=== PATIENT | male | born 1955 | race Hispanic/Latino ===

== ENCOUNTER 2022-03-05 22:52 | Inpatient (IN) | payer OTHER ==
[2022-03-05 23:55] LABS: ALT (SGPT) 20 U/L (8-55); AST (SGOT) 27 U/L (5-34); Albumin 3.7 g/dL (3.4-4.8); Alkaline Phosphatase 64 U/L (40-110); Anion Gap 12 mmol/L (10-20); BUN (Urea Nitrogen) 19 mg/dL (8.4-25.7); Bilirubin, Total 1.4 mg/dL (0.2-1.2); Calc. Creatinine Clearance 0 mL/min (70-130); Calcium 9.1 mg/dL (7.8-10.44); Carbon Dioxide 20 mmol/L (23-31); Chloride 110 mmol/L (98-107); Globulin 2.9 g/dL (2.4-3.5); Glucose 156 mg/dL (80-115); Potassium 3.3 mmol/L (3.5-5.1); Protein, Total 6.6 g/dL (5.8-8.1); Sodium 139 mmol/L (136-145)
[2022-03-06 00:01] LABS: #Eosinphils 0.1 10x3/uL (0.0-0.5); #Monocytes 0.4 10x3/uL (0.0-1.1); #Neutrophils 3.9 10x3/uL (1.5-8.4); %Basophils 0.6 % (0.0-2.0); %Eosinophils 1.5 % (0.0-6.0); %Lymphocytes 5.2 % (18.0-47.0); %Monocytes 8.2 % (0.0-10.0); %Neutrophils 84.3 % (40.0-75.0); Hemoglobin 10.8 g/dL (13.5-17.5); Mean Corpuscular Volume 88.3 fl (81.2-95.1); Mean Platelet Volume 10.7 fl (7.4-10.4); Platelet Count 119 10x3/uL (150-450); RBC Distribution Width 17.5 % (11.5-14.5); White Blood Cell (WBC) Count 4.7 10x3/uL (3.5-10.5)
[2022-03-06] MEDS ORDERED: Ibuprofen 200 MG TAB ONE (00:12)
[2022-03-06 00:34] LABS: SARS-CoV-2 NAA Rapid Test Not Detected (NotDetected)
[2022-03-06 01:02] LABS: Magnesium 1.7 mg/dL (1.6-2.6)
[2022-03-06 01:57] LABS: INR-International Normal Ratio 1.9; Prothrombin Time 18.9 sec (9.5-12.1)
[2022-03-06] MEDS ORDERED: Acetaminophen 325 MG TAB PO PRN (03:21)
[2022-03-06] MEDS ORDERED: Potassium Chloride 20 MEQ TAB ONE (03:57)
[2022-03-06] MEDS ORDERED: Furosemide 40 MG/4 ML VIAL ONE (03:57)
[2022-03-06 05:06] LABS: Troponin I 0.254 ng/mL (< 0.028)
[2022-03-06 05:42] VITALS: BMI 35.7
[2022-03-06] MEDS ORDERED: Potassium Chloride 20 MEQ TAB PO SCH (06:00)
[2022-03-06] MEDS ORDERED: Diltiazem 125 MG in Sodium Chloride 0.9% 100 ML IVPB SCH (06:00)
[2022-03-06] MEDS ORDERED: cefTRIAXone\\ROCEPHIN 1 GM in Sodium Chloride 0.9% 100 ML IVPB SCH ×2 (06:00→11:00)
[2022-03-06 06:47] LABS: CKMB 4.2 ng/mL (0-6.6)
[2022-03-06] MEDS ORDERED: Carvedilol 3.125 MG TAB PO SCH (07:30)
[2022-03-06] MEDS ORDERED: Spironolactone 25 MG TAB PO SCH (08:00)
[2022-03-06] MEDS: Albumin 25% 25 GM/100 ML BOT IVPB SCH (08:49)
[2022-03-06] MEDS: Azithromycin 500 MG in Sodium Chloride 0.9% 250 ML 250 ML IVPB SCH (08:49)
[2022-03-06] MEDS ORDERED: FLUoxetine HCl 20 MG CAP PO SCH ×2 (09:00→09:15)
[2022-03-06] MEDS ORDERED: Amiodarone 200 MG TAB PO SCH (09:00)
[2022-03-06] MEDS ORDERED: Furosemide 20 MG TAB PO SCH (09:00)
[2022-03-06] MEDS ORDERED: Sodium Chloride 0.9% 1,000 ML IV SCH (10:15)
[2022-03-06] MEDS ORDERED: Ondansetron PF 4 MG/2 ML Vial ONE (10:28)
[2022-03-06] MEDS ORDERED: Ondansetron PF 4 MG/2 ML Vial IVP SCH (10:30)
[2022-03-06 10:31] LABS: Anion Gap 13 mmol/L (10-20); BUN (Urea Nitrogen) 19 mg/dL (8.4-25.7); Calc. Creatinine Clearance 114 mL/min (70-130); Calcium 8.9 mg/dL (7.8-10.44); Carbon Dioxide 20 mmol/L (23-31); Chloride 110 mmol/L (98-107); Glucose 128 mg/dL (80-115); Magnesium 1.7 mg/dL (1.6-2.6); Potassium 4.3 mmol/L (3.5-5.1); Sodium 139 mmol/L (136-145)
[2022-03-06 10:40] LABS: Troponin I 2.093 ng/mL (< 0.028)
[2022-03-06] MEDS ORDERED: Norepinephrine 8 MG/0.9% NS 250 ML IVPB SCH (10:45)
[2022-03-06 11:17] LABS: Lactic Acid 3.1 mmol/L (0.5-2.2)
[2022-03-06 11:18] LABS: Prothrombin Time 20.8 sec (9.5-12.1)
[2022-03-06] MEDS ORDERED: Sodium Chloride 0.9% 100 ML ONE (11:42)
[2022-03-06] MEDS ORDERED: Magnesium 2 GM/50 ML(in water) 2 GM in Premix Bag 1 BAG IVPB SCH (11:45)
[2022-03-06] MEDS ORDERED: Aspirin 81 mg Enteric Coated Tablet PO SCH (12:45)
[2022-03-06 15:09] LABS: Bilirubin Neg (Negative); Blood, Urine 50 (Negative); Clarity Slightly Cloudy (Clear); Glucose, Urine (Dipstick) Normal (Negative); Ketone, Urine Negative (Negative); Leukocyte 25 (Negative); Nitrite Negative (Negative); Protein, Urine (Dipstick) 100 mg/dl (Neg-Trace)
[2022-03-06 15:29] LABS: Urine Culture Reflex No No
[2022-03-06 15:30] LABS: Bacteria/HPF 2+ HPF (None Seen); RBC/HPF 0-3 HPF (0-3); Renal Epithelial 0-3 HPF (None Seen); Squamous Epithelial 0-3 HPF (0-3)
[2022-03-06 15:33] LABS: Legionella Urinary Ag Negative (Negative); Strep pneumo Urine Ag NEGATIVE (NEGATIVE)
[2022-03-06 15:34] LABS: Actual Bicarbonate (HCO3v) 18 mEq/L (22-28); Base Excess -6.2 mEq/L (-2.0 to +3.0); Calcium, Ionized (venous) 1.11 mmol/L (1.16-1.32); Chloride (VBG) 111 mmol/L (98-106); Hemoglobin (Hb) 11.4 g/dL (12.6-17.4); Potassium (VBG) 4.24 mmol/L (3.70-5.30); Puncture Site Other Site; RapidComm Collect By LAB; Sodium 138.7 mmol/L (133-146); pH (venous) 7.37 (7.32-7.43)
[2022-03-06] MEDS ORDERED: Ondansetron PF 4 MG/2 ML Vial IVP PRN (16:00)
[2022-03-06 16:17] LABS: Troponin I 1.613 ng/mL (< 0.028)
[2022-03-06] MEDS ORDERED: Warfarin Sodium 5 MG TAB PO SCH (17:00)
[2022-03-06] MEDS: Atorvastatin Calcium 40 MG TAB PO SCH (20:47)
[2022-03-06] MEDS: Famotidine/PF 20 mg/2ml Vial SLOW IVP SCH (20:47)
[2022-03-06] MEDS ORDERED: Terazosin HCl 1 MG CAP PO SCH (21:00)
[2022-03-07 04:50] LABS: #Eosinphils 0.1 10x3/uL (0.0-0.5); #Monocytes 0.9 10x3/uL (0.0-1.1); #Neutrophils 5.5 10x3/uL (1.5-8.4); %Basophils 0.6 % (0.0-2.0); %Eosinophils 1.4 % (0.0-6.0); %Lymphocytes 9.4 % (18.0-47.0); %Monocytes 12.3 % (0.0-10.0); %Neutrophils 76.2 % (40.0-75.0); Hemoglobin 10.1 g/dL (13.5-17.5); Mean Corpuscular HGB CONC 33.3 g/dL (32.0-36.0); Mean Corpuscular Hemoglobin 29.6 pg (27.0-33.0); Mean Corpuscular Volume 88.9 fl (81.2-95.1); Mean Platelet Volume 10.2 fl (7.4-10.4); Platelet Count 120 10x3/uL (150-450); RBC Distribution Width 18.4 % (11.5-14.5); Red Blood Cell (RBC) Count 3.41 10x6/uL (4.32-5.72); White Blood Cell (WBC) Count 7.2 10x3/uL (3.5-10.5)
[2022-03-07 04:56] LABS: INR-International Normal Ratio 1.7; PTT 35.8 sec (22.0-33.0); Prothrombin Time 18.4 sec (9.5-12.1)
[2022-03-07 05:08] LABS: ALT (SGPT) 17 U/L (8-55); AST (SGOT) 20 U/L (5-34); Albumin 3.4 g/dL (3.4-4.8); Alkaline Phosphatase 50 U/L (40-110); Anion Gap 14 mmol/L (10-20); BUN (Urea Nitrogen) 24 mg/dL (8.4-25.7); Bilirubin, Direct 0.6 mg/dL (0.1-0.3); Bilirubin, Total 1.2 mg/dL (0.2-1.2); Calc. Creatinine Clearance 113 mL/min (70-130); Calcium 8.6 mg/dL (7.8-10.44); Carbon Dioxide 18 mmol/L (23-31); Cardiac Risk 2.5 (Less than 4.5); Chloride 110 mmol/L (98-107); Cholesterol 101 mg/dl (< 200 Desired); Glucose 130 mg/dL (80-115); HDL Cholesterol 40 mg/dL (>60 Neg Risk); LDL Cholesterol, Calculated 47 mg/dL; Potassium 3.7 mmol/L (3.5-5.1); Sodium 138 mmol/L (136-145); Triglycerides 68 mg/dL (Less than 150)
[2022-03-07] MEDS: cefTRIAXone\\ROCEPHIN 2 GM in Sodium Chloride 0.9% 100 ML IVPB SCH (06:02)
[2022-03-07] MEDS: Aspirin 81 mg Enteric Coated Tablet PO SCH (08:34)
[2022-03-07] MEDS: Famotidine/PF 20 mg/2ml Vial SLOW IVP SCH ×2 (08:34→20:46)
[2022-03-07] MEDS: FLUoxetine HCl 20 MG CAP PO SCH (08:35)
[2022-03-07] MEDS ORDERED: Azithromycin 500 MG VIAL ONE (08:45)
[2022-03-07] MEDS ORDERED: Sodium Chloride 0.9% 250 ML 250 ML ONE (08:45)
[2022-03-07] MEDS: Azithromycin 500 MG in Sodium Chloride 0.9% 250 ML 250 ML IVPB SCH (08:46)
[2022-03-07] MEDS ORDERED: Amiodarone 200 MG TAB PO SCH (11:30)
[2022-03-07] MEDS ORDERED: Spironolactone 25 MG TAB PO SCH (11:30)
[2022-03-07] MEDS ORDERED: Metoprolol Tartrate 25 MG TAB PO SCH (11:45)
[2022-03-07] MEDS: Albumin 25% 25 GM/100 ML BOT IVPB SCH (11:57)
[2022-03-07] MEDS: Furosemide 20 MG TAB PO SCH (14:05)
[2022-03-07 16:14] VITALS: TEMP 97.9
[2022-03-07] MEDS ORDERED: Warfarin Sodium 5 MG TAB PO SCH ×2 (17:00)
[2022-03-07] MEDS: Metoprolol Tartrate 25 MG TAB PO SCH (20:46)
[2022-03-07] MEDS: Atorvastatin Calcium 40 MG TAB PO SCH (20:46)
[2022-03-08 04:14] LABS: #Basophils 0.1 10x3/uL (0.0-0.2); #Eosinphils 0.3 10x3/uL (0.0-0.5); #Monocytes 1.1 10x3/uL (0.0-1.1); #Neutrophils 5.3 10x3/uL (1.5-8.4); %Basophils 0.7 % (0.0-2.0); %Lymphocytes 12.4 % (18.0-47.0); %Monocytes 13.7 % (0.0-10.0); %Neutrophils 68.8 % (40.0-75.0); Hemoglobin 10.6 g/dL (13.5-17.5); Mean Corpuscular HGB CONC 34.8 g/dL (32.0-36.0); Mean Corpuscular Hemoglobin 30.3 pg (27.0-33.0); Mean Corpuscular Volume 87.1 fl (81.2-95.1); Mean Platelet Volume 9.9 fl (7.4-10.4); Platelet Count 151 10x3/uL (150-450); RBC Distribution Width 18.1 % (11.5-14.5); White Blood Cell (WBC) Count 7.7 10x3/uL (3.5-10.5)
[2022-03-08 04:24] LABS: INR-International Normal Ratio 1.3; Prothrombin Time 14.2 sec (9.5-12.1)
[2022-03-08 04:28] LABS: Anion Gap 14 mmol/L (10-20); BUN (Urea Nitrogen) 23 mg/dL (8.4-25.7); Calc. Creatinine Clearance 132 mL/min (70-130); Calcium 8.7 mg/dL (7.8-10.44); Carbon Dioxide 20 mmol/L (23-31); Chloride 106 mmol/L (98-107); Glucose 104 mg/dL (80-115); Magnesium 1.8 mg/dL (1.6-2.6); Potassium 3.9 mmol/L (3.5-5.1); Sodium 136 mmol/L (136-145)
[2022-03-08] MEDS: cefTRIAXone\\ROCEPHIN 2 GM in Sodium Chloride 0.9% 100 ML IVPB SCH (06:14)
[2022-03-08 07:30] VITALS: BP 124/57
[2022-03-08] MEDS: FLUoxetine HCl 20 MG CAP PO SCH (08:00)
[2022-03-08] MEDS: Famotidine/PF 20 mg/2ml Vial SLOW IVP SCH (08:01)
[2022-03-08] MEDS: Metoprolol Tartrate 25 MG TAB PO SCH (08:01)
[2022-03-08] MEDS: Aspirin 81 mg Enteric Coated Tablet PO SCH (08:02)
[2022-03-08] MEDS: Furosemide 20 MG TAB PO SCH ×2 (08:03→14:23)
[2022-03-08] MEDS: Azithromycin 500 MG in Sodium Chloride 0.9% 250 ML 250 ML IVPB SCH (08:35)
[2022-03-08] MEDS ORDERED: Spironolactone 25 MG TAB PO SCH (09:00)
[2022-03-08] MEDS ORDERED: Amiodarone 200 MG TAB PO SCH (09:00)
[2022-03-08] MEDS ORDERED: Metoprolol Tartrate 25 MG TAB PO SCH (15:30)
[2022-03-08] MEDS ORDERED: Warfarin Sodium 7.5 MG TAB PO SCH (17:00)
[2022-03-08] MEDS ORDERED: Warfarin Sodium 2.5 MG TAB PO SCH (17:00)
[2022-03-08] MEDS ORDERED: Warfarin Sodium 10 MG TAB PO SCH (17:00)
[2022-03-08] MEDS ORDERED: Cefuroxime Axetil 250 MG TAB PO SCH (21:00)
[2022-03-09] MEDS ORDERED: Warfarin Sodium 5 MG TAB PO SCH (17:00)
== END 2022-03-08 15:38 | DRG 280 ==
LOC: EEVIPCON 22:52 → CSHERS 22:52 → CSHTELE 03-06 04:45 → CSHIMCU 03-06 11:04
PROVIDERS: ADMIT Family Medicine; ATTEND Hospitalist
PROC: 3E033XZ Introduction of Vasopressor into Peripheral Vein, Percutaneous Approach (ICD-10-PCS; principal; 2022-03-06)
DX: I11.0 Hypertensive heart disease with heart failure (principal); J18.9 Pneumonia, unspecified organism; I21.A1 Myocardial infarction type 2; J96.01 Acute respiratory failure with hypoxia; I50.43 Acute on chronic combined systolic (congestive) and diastolic (congestive) heart failure; J81.1 Chronic pulmonary edema; I48.21 Permanent atrial fibrillation; I95.9 Hypotension, unspecified; I34.0 Nonrheumatic mitral (valve) insufficiency; I25.10 Atherosclerotic heart disease of native coronary artery without angina pectoris; E87.6 Hypokalemia; R73.9 Hyperglycemia, unspecified; D69.6 Thrombocytopenia, unspecified; F41.9 Anxiety disorder, unspecified; I42.9 Cardiomyopathy, unspecified; E66.9 Obesity, unspecified; Z68.35 Body mass index [BMI] 35.0-35.9, adult; D64.9 Anemia, unspecified; M19.90 Unspecified osteoarthritis, unspecified site; Z96.1 Presence of intraocular lens; Z20.822 Contact with and (suspected) exposure to COVID-19; Z79.899 Other long term (current) drug therapy; Z79.82 Long term (current) use of aspirin; Z79.01 Long term (current) use of anticoagulants; Z86.73 Personal history of transient ischemic attack (TIA), and cerebral infarction without residual deficits; Z98.42 Cataract extraction status, left eye; Z98.41 Cataract extraction status, right eye; Z90.49 Acquired absence of other specified parts of digestive tract; Z98.890 Other specified postprocedural states; Z72.89 Other problems related to lifestyle; Z81.1 Family history of alcohol abuse and dependence
CPT/HCPCS: 36415; 36416; 71045; 80048; 80053; 80061; 80076; 81001; 82553; 82805; 83036; 83605; 83735; 83880; 84145; 84443; 84484; 85025; 85610; 85730; 86850; 86900; 86901; 87040; 87081; 87086; 87449; 87899; 93005; 93010; 93306; 94760; J0456; J0696; J1940; J2405; J3475; J3490; J7050; P9047; S0028; U0002

== ENCOUNTER 2022-04-01 12:33 | Emergency (ER) | payer OTHER ==
[~2022-04-01 12:33] MED LIST: Iopamidol 300 61% 100 ML VIAL FS ONE
[2022-04-01] MEDS ORDERED: Ketorolac Tromethamine 30 MG/ML VIAL ONE (13:15)
[2022-04-01] MEDS ORDERED: Morphine 4 MG/ML VIAL ONE (13:15)
[2022-04-01] MEDS ORDERED: Morphine 2 MG/ML VIAL ONE (13:16)
[2022-04-01 14:09] LABS: #Basophils 0.1 10x3/uL (0.0-0.2); #Eosinphils 0.5 10x3/uL (0.0-0.5); #Monocytes 0.3 10x3/uL (0.0-1.1); #Neutrophils 2.6 10x3/uL (1.5-8.4); %Basophils 1.2 % (0.0-2.0); %Eosinophils 12.1 % (0.0-6.0); %Lymphocytes 19.3 % (18.0-47.0); %Monocytes 7.7 % (0.0-10.0); %Neutrophils 59.5 % (40.0-75.0); Hemoglobin 10.5 g/dL (13.5-17.5); Mean Corpuscular HGB CONC 33.2 g/dL (32.0-36.0); Mean Corpuscular Hemoglobin 29.6 pg (27.0-33.0); Mean Platelet Volume 9.4 fl (7.4-10.4); Platelet Count 193 10x3/uL (150-450); RBC Distribution Width 16.6 % (11.5-14.5); Red Blood Cell (RBC) Count 3.55 10x6/uL (4.32-5.72); White Blood Cell (WBC) Count 4.3 10x3/uL (3.5-10.5)
[2022-04-01 14:18] LABS: ALT (SGPT) 7 U/L (8-55); AST (SGOT) 13 U/L (5-34); Albumin 3.7 g/dL (3.4-4.8); Alkaline Phosphatase 77 U/L (40-110); Anion Gap 12 mmol/L (10-20); BUN (Urea Nitrogen) 14 mg/dL (8.4-25.7); Bilirubin, Total 1.5 mg/dL (0.2-1.2); Calc. Creatinine Clearance 0 mL/min (70-130); Calcium 9.5 mg/dL (7.8-10.44); Carbon Dioxide 24 mmol/L (23-31); Chloride 104 mmol/L (98-107); Globulin 3.7 g/dL (2.4-3.5); Glucose 101 mg/dL (80-115); Potassium 3.8 mmol/L (3.5-5.1); Protein, Total 7.4 g/dL (5.8-8.1); Sodium 136 mmol/L (136-145)
[2022-04-01 15:29] LABS: SARS-CoV-2 NAA Rapid Test Not Detected (NotDetected)
[2022-04-01] MEDS ORDERED: Piperacillin/Tazobactam 3.375 GM VIAL ONE (15:45)
== END 2022-04-01 21:16 | disposition short-term general hospital (02) ==
LOC: CSHERS 12:33
DX: K40.30 Unilateral inguinal hernia, with obstruction, without gangrene, not specified as recurrent (principal); I11.0 Hypertensive heart disease with heart failure; I50.9 Heart failure, unspecified; I48.91 Unspecified atrial fibrillation; Z20.822 Contact with and (suspected) exposure to COVID-19; Z79.01 Long term (current) use of anticoagulants; Z86.73 Personal history of transient ischemic attack (TIA), and cerebral infarction without residual deficits
CPT/HCPCS: 36415; 74177; 80053; 85025; 87040; 96365; 96375; J1885; J2270; J2543; Q9967; U0002

== ENCOUNTER 2022-05-01 09:27 | Inpatient (IN) | payer OTHER ==
[2022-05-01 10:12] LABS: #Eosinphils 0.3 10x3/uL (0.0-0.5); #Monocytes 0.9 10x3/uL (0.0-1.1); #Neutrophils 5.4 10x3/uL (1.5-8.4); %Basophils 0.4 % (0.0-2.0); %Eosinophils 4.6 % (0.0-6.0); %Neutrophils 73.7 % (40.0-75.0); Hemoglobin 9.7 g/dL (13.5-17.5); Mean Corpuscular HGB CONC 32.4 g/dL (32.0-36.0); Mean Corpuscular Volume 89.5 fl (81.2-95.1); Mean Platelet Volume 10.2 fl (7.4-10.4); Platelet Count 192 10x3/uL (150-450); RBC Distribution Width 16.4 % (11.5-14.5); Red Blood Cell (RBC) Count 3.34 10x6/uL (4.32-5.72); White Blood Cell (WBC) Count 7.4 10x3/uL (3.5-10.5)
[2022-05-01 10:25] LABS: INR-International Normal Ratio 2.2; PTT 38.3 sec (22.0-33.0); Prothrombin Time 22.7 sec (9.5-12.1)
[2022-05-01 10:30] LABS: ALT (SGPT) 6 U/L (8-55); AST (SGOT) 17 U/L (5-34); Albumin 3.2 g/dL (3.4-4.8); Alkaline Phosphatase 70 U/L (40-110); Anion Gap 15 mmol/L (10-20); BUN (Urea Nitrogen) 10 mg/dL (8.4-25.7); Bilirubin, Total 1.7 mg/dL (0.2-1.2); CK (CPK) 50 U/L (30-200); Calc. Creatinine Clearance 0 mL/min (70-130); Calcium 8.7 mg/dL (7.8-10.44); Carbon Dioxide 20 mmol/L (23-31); Chloride 103 mmol/L (98-107); Estimated GFR 98; Globulin 4.2 g/dL (2.4-3.5); Glucose 110 mg/dL (80-115); Magnesium 1.5 mg/dL (1.6-2.6); Potassium 3.9 mmol/L (3.5-5.1); Protein, Total 7.4 g/dL (5.8-8.1); Sodium 134 mmol/L (136-145)
[2022-05-01 10:51] LABS: CKMB 0.8 ng/mL (0-6.6)
[2022-05-01 11:44] LABS: SARS-CoV-2 NAA Rapid Test Not Detected (NotDetected)
[2022-05-01] MEDS ORDERED: Iopamidol 300 61% 100 ML VIAL FS ONE (12:14)
[2022-05-01] MEDS ORDERED: Diltiazem 125 MG/25 ML ONE (14:58)
[2022-05-01] MEDS ORDERED: Magnesium 2 GM/50 ML BAG (IN WATER) ONE (16:30)
[2022-05-01] MEDS ORDERED: Amiodarone 150 MG/3 ML VIAL ONE (19:04)
[2022-05-01] MEDS ORDERED: Acetaminophen 500 MG TAB ONE (19:05)
[2022-05-01] MEDS ORDERED: Cefepime 2 GM VIAL ONE (19:05)
[2022-05-01 20:16] LABS: Troponin I 0.056 ng/mL (< 0.028)
[2022-05-01 20:35] LABS: Bilirubin 1+ (Negative); Blood, Urine 25 (Negative); Clarity Clear (Clear); Glucose, Urine (Dipstick) Normal (Negative); Ketone, Urine Negative (Negative); Leukocyte Negative (Negative); Nitrite Negative (Negative); Protein, Urine (Dipstick) 15 mg/dl (Neg-Trace); Specific Gravity, Urine 1.015 (1.002-1.036); Urobilinogen 12 mg/dL (Less than 2)
[2022-05-01] MEDS ORDERED: Senokot S 8.6-50 MG TAB PO PRN (20:47)
[2022-05-01] MEDS ORDERED: Ondansetron PF 4 MG/2 ML Vial IVP PRN (20:47)
[2022-05-01] MEDS ORDERED: Calcium Carbonate 500 MG ChewTAB PO PRN (20:47)
[2022-05-01] MEDS ORDERED: Guaifenesin DM 100-10/5 ML UDCUP PO PRN (20:47)
[2022-05-01 20:51] LABS: Bacteria/HPF Rare-Few HPF (None Seen); Mucous/LPF Rare LPF (<2+); RBC/HPF 0-3 HPF (0-3); Squamous Epithelial 0-3 HPF (0-3)
[2022-05-01] MEDS ORDERED: Digoxin 0.5 MG/2 ML AMP ONE (21:26)
[2022-05-01] MEDS: Diltiazem 125 MG, Admixture Fee 1 EACH in Sodium Chloride 0.9% 100 ML IVPB SCH (22:55)
[2022-05-01] MEDS ORDERED: Furosemide 20 MG TAB PO SCH (23:00)
[2022-05-01] MEDS ORDERED: Atorvastatin Calcium 40 MG TAB PO SCH (23:00)
[2022-05-01 23:12] LABS: Troponin I 0.056 ng/mL (< 0.028)
[2022-05-01] MEDS ORDERED: Piperacillin/Tazobactam 3.375 GM in Sodium Chloride 0.9% 100 ML IVPB SCH (23:15)
[2022-05-01] MEDS ORDERED: Piperacillin/Tazobactam 4.5 GM in Sodium Chloride 0.9% 100 ML IVPB SCH (23:59)
[2022-05-02 00:23] LABS: Legionella Urinary Ag Negative (Negative)
[2022-05-02 00:24] LABS: Strep pneumo Urine Ag NEGATIVE (NEGATIVE)
[2022-05-02] MEDS ORDERED: Vancomycin HCl 1 GM in Sodium Chloride 0.9% 250 ML 250 ML IVPB SCH (00:30)
[2022-05-02] MEDS: HYDROcodone/Acetaminophen 5/325 mg Tablet PO PRN ×3 (00:54→21:10)
[2022-05-02] MEDS ORDERED: Digoxin 0.5 MG/2 ML AMP SLOW IVP SCH ×2 (02:00→09:00)
[2022-05-02] MEDS: Piperacillin/Tazobactam 3.375 GM in Sodium Chloride 0.9% 100 ML IVPB SCH ×3 (03:02→20:53)
[2022-05-02 04:42] LABS: INR-International Normal Ratio 1.7; PTT 39.4 sec (22.0-33.0); Prothrombin Time 17.6 sec (9.5-12.1)
[2022-05-02 04:45] LABS: #Eosinphils 0.4 10x3/uL (0.0-0.5); #Neutrophils 7.2 10x3/uL (1.5-8.4); %Basophils 0.4 % (0.0-2.0); %Eosinophils 3.9 % (0.0-6.0); %Lymphocytes 5.7 % (18.0-47.0); %Neutrophils 78.6 % (40.0-75.0); Hemoglobin 9.8 g/dL (13.5-17.5); Mean Corpuscular HGB CONC 32.8 g/dL (32.0-36.0); Mean Corpuscular Hemoglobin 29.2 pg (27.0-33.0); Mean Platelet Volume 10.3 fl (7.4-10.4); Platelet Count 193 10x3/uL (150-450); RBC Distribution Width 16.5 % (11.5-14.5); Red Blood Cell (RBC) Count 3.36 10x6/uL (4.32-5.72); White Blood Cell (WBC) Count 9.2 10x3/uL (3.5-10.5)
[2022-05-02 04:46] LABS: ALT (SGPT) Less than 6 U/L (8-55); AST (SGOT) 9 U/L (5-34); Alkaline Phosphatase 72 U/L (40-110); Anion Gap 14 mmol/L (10-20); BUN (Urea Nitrogen) 9 mg/dL (8.4-25.7); Bilirubin, Total 2.1 mg/dL (0.2-1.2); Calc. Creatinine Clearance 123 mL/min (70-130); Calcium 7.8 mg/dL (7.8-10.44); Carbon Dioxide 20 mmol/L (23-31); Chloride 105 mmol/L (98-107); Estimated GFR 100; Globulin 3.3 g/dL (2.4-3.5); Glucose 105 mg/dL (80-115); Potassium 3.3 mmol/L (3.5-5.1); Protein, Total 6.3 g/dL (5.8-8.1); Sodium 136 mmol/L (136-145)
[2022-05-02 05:05] LABS: CKMB 0.5 ng/mL (0-6.6)
[2022-05-02] MEDS ORDERED: Potassium Chloride 20 MEQ TAB PO SCH (08:00)
[2022-05-02] MEDS: Furosemide 20 MG TAB PO SCH ×2 (08:40→20:53)
[2022-05-02] MEDS: FLUoxetine HCl 20 MG CAP PO SCH (08:40)
[2022-05-02] MEDS: Amiodarone 200 MG TAB PO SCH (08:40)
[2022-05-02] MEDS: Aspirin 81 mg Enteric Coated Tablet PO SCH (08:41)
[2022-05-02] MEDS ORDERED: Morphine 2 MG/ML VIAL SLOW IVP PRN (08:59)
[2022-05-02] MEDS: Spironolactone 25 MG TAB PO SCH (08:59)
[2022-05-02] MEDS: Terazosin HCl 1 MG CAP PO SCH (09:00)
[2022-05-02] MEDS: VANCOMYCIN 1.25 GM/250 ML BAG 1.25 GM in Premix Bag 1 BAG IVPB SCH (13:59)
[2022-05-02] MEDS ORDERED: Lidocaine 1% w/Epinephrine 1:200K 30 ML VIAL FS PRN (15:46)
[2022-05-02] MEDS: Diltiazem 125 MG, Admixture Fee 1 EACH in Sodium Chloride 0.9% 100 ML IVPB SCH (17:13)
[2022-05-02] MEDS: Atorvastatin Calcium 40 MG TAB PO SCH (20:53)
[2022-05-03] MEDS: VANCOMYCIN 1.25 GM/250 ML BAG 1.25 GM in Premix Bag 1 BAG IVPB SCH ×2 (00:15→13:51)
[2022-05-03 03:14] LABS: #Basophils 0.1 10x3/uL (0.0-0.2); #Eosinphils 0.9 10x3/uL (0.0-0.5); #Monocytes 1.1 10x3/uL (0.0-1.1); #Neutrophils 6.7 10x3/uL (1.5-8.4); %Basophils 0.5 % (0.0-2.0); %Eosinophils 9.3 % (0.0-6.0); %Lymphocytes 7.8 % (18.0-47.0); %Monocytes 11.1 % (0.0-10.0); %Neutrophils 70.9 % (40.0-75.0); Hemoglobin 8.9 g/dL (13.5-17.5); Mean Corpuscular Hemoglobin 29.2 pg (27.0-33.0); Mean Corpuscular Volume 91.1 fl (81.2-95.1); Mean Platelet Volume 9.5 fl (7.4-10.4); Platelet Count 175 10x3/uL (150-450); RBC Distribution Width 16.3 % (11.5-14.5); Red Blood Cell (RBC) Count 3.05 10x6/uL (4.32-5.72); White Blood Cell (WBC) Count 9.5 10x3/uL (3.5-10.5)
[2022-05-03 03:21] LABS: INR-International Normal Ratio 2.1; Prothrombin Time 21.6 sec (9.5-12.1)
[2022-05-03 03:45] LABS: Anion Gap 13 mmol/L (10-20); BUN (Urea Nitrogen) 11 mg/dL (8.4-25.7); CRP (Inflammatory) 12.34 mg/dL (= or < 0.5); Calc. Creatinine Clearance 125 mL/min (70-130); Calcium 7.9 mg/dL (7.8-10.44); Carbon Dioxide 19 mmol/L (23-31); Chloride 103 mmol/L (98-107); Estimated GFR 100; Glucose 110 mg/dL (80-115); Potassium 3.5 mmol/L (3.5-5.1); Sodium 131 mmol/L (136-145)
[2022-05-03] MEDS: Piperacillin/Tazobactam 3.375 GM in Sodium Chloride 0.9% 100 ML IVPB SCH ×2 (04:14→11:41)
[2022-05-03] MEDS: Acetaminophen 325 MG TAB PO PRN (04:32)
[2022-05-03] MEDS: Furosemide 20 MG TAB PO SCH ×2 (08:09→20:03)
[2022-05-03] MEDS: Spironolactone 25 MG TAB PO SCH (08:09)
[2022-05-03] MEDS: Amiodarone 200 MG TAB PO SCH (08:09)
[2022-05-03] MEDS: Aspirin 81 mg Enteric Coated Tablet PO SCH (08:09)
[2022-05-03] MEDS: FLUoxetine HCl 20 MG CAP PO SCH (08:09)
[2022-05-03] MEDS: Terazosin HCl 1 MG CAP PO SCH (08:09)
[2022-05-03 12:27] LABS: Vancomycin, Trough 14.2 ug/mL
[2022-05-03 12:30] LABS: Hemoglobin A1c 4.6 % (4.0-6.0)
[2022-05-03] MEDS ORDERED: Warfarin Sodium 7.5 MG TAB PO SCH (18:00)
[2022-05-03] MEDS: HYDROcodone/Acetaminophen 5/325 mg Tablet PO PRN (20:02)
[2022-05-03] MEDS: Atorvastatin Calcium 40 MG TAB PO SCH (20:03)
[2022-05-03 22:44] LABS: Bilirubin Neg (Negative); Blood, Urine 25 (Negative); Clarity Slightly Cloudy (Clear); Glucose, Urine (Dipstick) Normal (Negative); Ketone, Urine Negative (Negative); Leukocyte Negative (Negative); Nitrite Negative (Negative); Protein, Urine (Dipstick) Negative (Neg-Trace); Urobilinogen Normal mg/dL (Less than 2)
[2022-05-03 22:48] LABS: Urine Culture Reflex No No
[2022-05-03 22:52] LABS: Bacteria/HPF Rare-Few HPF (None Seen); RBC/HPF 0-3 HPF (0-3); Squamous Epithelial 0-3 HPF (0-3)
[2022-05-04] MEDS: VANCOMYCIN 1.25 GM/250 ML BAG 1.25 GM in Premix Bag 1 BAG IVPB SCH ×2 (01:38→12:16)
[2022-05-04 03:44] LABS: #Eosinphils 1.2 10x3/uL (0.0-0.5); #Neutrophils 6.5 10x3/uL (1.5-8.4); %Basophils 0.4 % (0.0-2.0); %Eosinophils 12.3 % (0.0-6.0); %Lymphocytes 7.9 % (18.0-47.0); %Monocytes 10.5 % (0.0-10.0); %Neutrophils 68.5 % (40.0-75.0); Hemoglobin 9.6 g/dL (13.5-17.5); Mean Corpuscular HGB CONC 32.4 g/dL (32.0-36.0); Mean Corpuscular Hemoglobin 28.6 pg (27.0-33.0); Mean Corpuscular Volume 88.1 fl (81.2-95.1); Mean Platelet Volume 9.5 fl (7.4-10.4); Platelet Count 208 10x3/uL (150-450); RBC Distribution Width 15.9 % (11.5-14.5); Red Blood Cell (RBC) Count 3.36 10x6/uL (4.32-5.72); White Blood Cell (WBC) Count 9.6 10x3/uL (3.5-10.5)
[2022-05-04 03:54] LABS: INR-International Normal Ratio 2.2; Prothrombin Time 22.4 sec (9.5-12.1)
[2022-05-04 04:06] LABS: ALT (SGPT) 7 U/L (8-55); AST (SGOT) 21 U/L (5-34); Albumin 2.8 g/dL (3.4-4.8); Alkaline Phosphatase 77 U/L (40-110); Anion Gap 13 mmol/L (10-20); BUN (Urea Nitrogen) 8 mg/dL (8.4-25.7); Bilirubin, Direct 0.6 mg/dL (0.1-0.3); Bilirubin, Total 0.9 mg/dL (0.2-1.2); CRP (Inflammatory) 10.27 mg/dL (= or < 0.5); Calc. Creatinine Clearance 136 mL/min (70-130); Calcium 8.1 mg/dL (7.8-10.44); Carbon Dioxide 20 mmol/L (23-31); Cardiac Risk 2.6 (Less than 4.5); Chloride 104 mmol/L (98-107); Cholesterol 50 mg/dl (< 200 Desired); Estimated GFR 102; Glucose 115 mg/dL (80-115); HDL Cholesterol 19 mg/dL (>60 Neg Risk); LDL Cholesterol, Calculated 18 mg/dL; Magnesium 1.5 mg/dL (1.6-2.6); Potassium 3.4 mmol/L (3.5-5.1); Protein, Total 6.5 g/dL (5.8-8.1); Sodium 134 mmol/L (136-145); Triglycerides 65 mg/dL (Less than 150)
[2022-05-04] MEDS: Acetaminophen 325 MG TAB PO PRN ×2 (04:57→20:20)
[2022-05-04] MEDS ORDERED: Potassium Chloride 20 MEQ TAB PO SCH ×2 (05:00→17:00)
[2022-05-04] MEDS ORDERED: Magnesium 2 GM/50 ML(in water) 2 GM in Premix Bag 1 BAG IVPB SCH ×2 (05:00→06:30)
[2022-05-04] MEDS: Furosemide 20 MG TAB PO SCH ×2 (07:20→19:56)
[2022-05-04] MEDS: Amiodarone 200 MG TAB PO SCH (07:20)
[2022-05-04] MEDS: FLUoxetine HCl 20 MG CAP PO SCH (07:20)
[2022-05-04] MEDS: Aspirin 81 mg Enteric Coated Tablet PO SCH (07:20)
[2022-05-04] MEDS: Spironolactone 25 MG TAB PO SCH (07:20)
[2022-05-04] MEDS: Terazosin HCl 1 MG CAP PO SCH (07:23)
[2022-05-04] MEDS: HYDROcodone/Acetaminophen 5/325 mg Tablet PO PRN ×2 (10:41→19:59)
[2022-05-04] MEDS: Loperamide HCl 1 MG/7.5 ML UDCUP PO PRN ×2 (12:16→20:21)
[2022-05-04 12:31] LABS: Sodium, Urine 120 mmol/L (Not Available); Urea Nitrogen, Random Urine 330 mg/dl
[2022-05-04] MEDS ORDERED: Warfarin Sodium 7.5 MG TAB PO SCH (17:00)
[2022-05-04] MEDS: Atorvastatin Calcium 40 MG TAB PO SCH (19:56)
[2022-05-04 21:43] LABS: Campy jejuni + coli by PCR Negative (Negative); STEC Shiga Toxin 1+2 Negative (Negative); Salmonella spp. by PCR Negative (Negative); Shigella spp + EIEC by PCR Negative (Negative)
[2022-05-05 00:54] LABS: Vancomycin, Trough 12.1 ug/mL
[2022-05-05] MEDS: VANCOMYCIN 1.25 GM/250 ML BAG 1.25 GM in Premix Bag 1 BAG IVPB SCH ×2 (01:04→14:02)
[2022-05-05 03:43] LABS: #Basophils 0.1 10x3/uL (0.0-0.2); #Neutrophils 6.9 10x3/uL (1.5-8.4); %Basophils 0.5 % (0.0-2.0); %Eosinophils 10.4 % (0.0-6.0); %Lymphocytes 8.2 % (18.0-47.0); %Monocytes 10.4 % (0.0-10.0); %Neutrophils 70.1 % (40.0-75.0); Hemoglobin 9.8 g/dL (13.5-17.5); Mean Corpuscular Hemoglobin 29.5 pg (27.0-33.0); Mean Corpuscular Volume 89.5 fl (81.2-95.1); Mean Platelet Volume 9.8 fl (7.4-10.4); Platelet Count 250 10x3/uL (150-450); RBC Distribution Width 15.9 % (11.5-14.5); Red Blood Cell (RBC) Count 3.32 10x6/uL (4.32-5.72); White Blood Cell (WBC) Count 9.9 10x3/uL (3.5-10.5)
[2022-05-05 04:00] LABS: Anion Gap 13 mmol/L (10-20); BUN (Urea Nitrogen) 8 mg/dL (8.4-25.7); Calc. Creatinine Clearance 143 mL/min (70-130); Calcium 8.4 mg/dL (7.8-10.44); Carbon Dioxide 20 mmol/L (23-31); Chloride 105 mmol/L (98-107); Estimated GFR 104; Glucose 111 mg/dL (80-115); Magnesium 1.6 mg/dL (1.6-2.6); Potassium 4.1 mmol/L (3.5-5.1); Sodium 134 mmol/L (136-145)
[2022-05-05 04:01] LABS: INR-International Normal Ratio 3.2; Prothrombin Time 32.5 sec (9.5-12.1)
[2022-05-05] MEDS: Furosemide 20 MG TAB PO SCH ×2 (08:03→21:13)
[2022-05-05] MEDS: Loperamide HCl 1 MG/7.5 ML UDCUP PO PRN ×2 (08:03→14:19)
[2022-05-05] MEDS: Amiodarone 200 MG TAB PO SCH (08:03)
[2022-05-05] MEDS: Aspirin 81 mg Enteric Coated Tablet PO SCH (08:03)
[2022-05-05] MEDS: Terazosin HCl 1 MG CAP PO SCH (08:04)
[2022-05-05] MEDS: FLUoxetine HCl 20 MG CAP PO SCH (08:04)
[2022-05-05] MEDS: Spironolactone 25 MG TAB PO SCH (08:04)
[2022-05-05] MEDS: Magnesium 2 GM/50 ML(in water) 2 GM in Premix Bag 1 BAG IVPB SCH ×2 (08:06→08:56)
[2022-05-05] MEDS: Acetaminophen 325 MG TAB PO PRN ×2 (14:45→21:17)
[2022-05-05] MEDS: Atorvastatin Calcium 40 MG TAB PO SCH (21:12)
[2022-05-06] MEDS: VANCOMYCIN 1.25 GM/250 ML BAG 1.25 GM in Premix Bag 1 BAG IVPB SCH ×3 (02:10→14:10)
[2022-05-06 03:57] LABS: #Eosinphils 0.7 10x3/uL (0.0-0.5); #Monocytes 0.8 10x3/uL (0.0-1.1); #Neutrophils 4.8 10x3/uL (1.5-8.4); %Basophils 0.6 % (0.0-2.0); %Eosinophils 9.3 % (0.0-6.0); %Lymphocytes 10.4 % (18.0-47.0); %Monocytes 10.8 % (0.0-10.0); %Neutrophils 68.3 % (40.0-75.0); Hemoglobin 9.1 g/dL (13.5-17.5); Mean Corpuscular HGB CONC 32.5 g/dL (32.0-36.0); Mean Corpuscular Hemoglobin 28.5 pg (27.0-33.0); Mean Corpuscular Volume 87.8 fl (81.2-95.1); Platelet Count 251 10x3/uL (150-450); RBC Distribution Width 15.5 % (11.5-14.5); Red Blood Cell (RBC) Count 3.19 10x6/uL (4.32-5.72)
[2022-05-06 04:22] LABS: Anion Gap 14 mmol/L (10-20); BUN (Urea Nitrogen) 11 mg/dL (8.4-25.7); Calc. Creatinine Clearance 132 mL/min (70-130); Calcium 8.4 mg/dL (7.8-10.44); Carbon Dioxide 23 mmol/L (23-31); Chloride 100 mmol/L (98-107); Estimated GFR 102; Glucose 112 mg/dL (80-115); Magnesium 1.8 mg/dL (1.6-2.6); Potassium 3.7 mmol/L (3.5-5.1); Sodium 133 mmol/L (136-145)
[2022-05-06 04:27] LABS: INR-International Normal Ratio 4.2
[2022-05-06] MEDS ORDERED: Potassium Chloride 20 MEQ TAB PO SCH (06:30)
[2022-05-06] MEDS ORDERED: Magnesium 2 GM/50 ML(in water) 4 GM in Premix Bag 1 BAG IVPB SCH (06:30)
[2022-05-06] MEDS: Amiodarone 200 MG TAB PO SCH (09:49)
[2022-05-06] MEDS: Furosemide 20 MG TAB PO SCH ×2 (09:49→19:44)
[2022-05-06] MEDS: Aspirin 81 mg Enteric Coated Tablet PO SCH (09:49)
[2022-05-06] MEDS: Spironolactone 25 MG TAB PO SCH (09:49)
[2022-05-06] MEDS: FLUoxetine HCl 20 MG CAP PO SCH (09:50)
[2022-05-06] MEDS: Lidocaine 5% Patch TD SCH (09:51)
[2022-05-06] MEDS: Terazosin HCl 1 MG CAP PO SCH (09:55)
[2022-05-06] MEDS: Loperamide HCl 1 MG/7.5 ML UDCUP PO PRN (09:58)
[2022-05-06] MEDS ORDERED: Diphenoxylate HCl/Atropine Tablet PO PRN (16:29)
[2022-05-06] MEDS: Saccharomyces boulardii 250 MG CAP PO SCH ×4 (19:34→19:52)
[2022-05-06] MEDS: Atorvastatin Calcium 40 MG TAB PO SCH (19:44)
[2022-05-06] MEDS: HYDROcodone/Acetaminophen 5/325 mg Tablet PO PRN (19:49)
[2022-05-06] MEDS: LIDOCAINE Patch Removal TOP SCH (19:50)
[2022-05-06] MEDS ORDERED: Saccharomyces boulardii 250 MG CAP PO SCH (20:00)
[2022-05-07] MEDS: VANCOMYCIN 1.25 GM/250 ML BAG 1.25 GM in Premix Bag 1 BAG IVPB SCH ×2 (03:05→15:45)
[2022-05-07 05:31] LABS: #Basophils 0.1 10x3/uL (0.0-0.2); #Eosinphils 0.7 10x3/uL (0.0-0.5); #Monocytes 0.8 10x3/uL (0.0-1.1); #Neutrophils 4.6 10x3/uL (1.5-8.4); %Basophils 0.7 % (0.0-2.0); %Eosinophils 9.4 % (0.0-6.0); %Lymphocytes 11.4 % (18.0-47.0); %Monocytes 11.2 % (0.0-10.0); %Neutrophils 66.7 % (40.0-75.0); Anion Gap 15 mmol/L (10-20); BUN (Urea Nitrogen) 10 mg/dL (8.4-25.7); Calc. Creatinine Clearance 130 mL/min (70-130); Carbon Dioxide 22 mmol/L (23-31); Chloride 99 mmol/L (98-107); Estimated GFR 101; Glucose 112 mg/dL (80-115); Hemoglobin 9.6 g/dL (13.5-17.5); Mean Corpuscular HGB CONC 33.3 g/dL (32.0-36.0); Mean Corpuscular Hemoglobin 28.8 pg (27.0-33.0); Mean Corpuscular Volume 86.5 fl (81.2-95.1); Mean Platelet Volume 9.6 fl (7.4-10.4); Platelet Count 292 10x3/uL (150-450); Potassium 3.6 mmol/L (3.5-5.1); RBC Distribution Width 15.4 % (11.5-14.5); Red Blood Cell (RBC) Count 3.33 10x6/uL (4.32-5.72); Sodium 132 mmol/L (136-145); White Blood Cell (WBC) Count 6.9 10x3/uL (3.5-10.5)
[2022-05-07 05:32] LABS: Calcium 8.6 mg/dL (7.8-10.44); Magnesium 1.6 mg/dL (1.6-2.6)
[2022-05-07 05:37] LABS: INR-International Normal Ratio 3.2; Prothrombin Time 32.6 sec (9.5-12.1)
[2022-05-07] MEDS: FLUoxetine HCl 20 MG CAP PO SCH (09:59)
[2022-05-07] MEDS: Furosemide 20 MG TAB PO SCH ×2 (10:00→20:05)
[2022-05-07] MEDS: Spironolactone 25 MG TAB PO SCH (10:00)
[2022-05-07] MEDS: Amiodarone 200 MG TAB PO SCH (10:00)
[2022-05-07] MEDS: Aspirin 81 mg Enteric Coated Tablet PO SCH (10:00)
[2022-05-07] MEDS: Saccharomyces boulardii 250 MG CAP PO SCH ×2 (10:25→17:24)
[2022-05-07] MEDS: Potassium Chloride 20 MEQ TAB PO SCH ×2 (10:25→17:18)
[2022-05-07] MEDS: Lidocaine 5% Patch TD SCH (10:31)
[2022-05-07] MEDS: Terazosin HCl 1 MG CAP PO SCH (10:37)
[2022-05-07] MEDS: HYDROcodone/Acetaminophen 5/325 mg Tablet PO PRN ×2 (10:42→20:09)
[2022-05-07] MEDS: Magnesium 2 GM/50 ML(in water) 2 GM in Premix Bag 1 BAG IVPB SCH ×5 (16:35→17:17)
[2022-05-07] MEDS ORDERED: Warfarin Sodium 5 MG TAB PO SCH (17:00)
[2022-05-07] MEDS: Atorvastatin Calcium 40 MG TAB PO SCH (20:05)
[2022-05-07] MEDS: LIDOCAINE Patch Removal TOP SCH (21:09)
[2022-05-08] MEDS: VANCOMYCIN 1.25 GM/250 ML BAG 1.25 GM in Premix Bag 1 BAG IVPB SCH (03:49)
[2022-05-08 04:43] LABS: INR-International Normal Ratio 2.2; Prothrombin Time 23.2 sec (9.5-12.1)
[2022-05-08 04:54] LABS: Anion Gap 14 mmol/L (10-20); BUN (Urea Nitrogen) 12 mg/dL (8.4-25.7); Calc. Creatinine Clearance 138 mL/min (70-130); Calcium 9.1 mg/dL (7.8-10.44); Carbon Dioxide 23 mmol/L (23-31); Chloride 98 mmol/L (98-107); Estimated GFR 103; Glucose 95 mg/dL (80-115); Magnesium 1.9 mg/dL (1.6-2.6); Potassium 4.3 mmol/L (3.5-5.1); Sodium 131 mmol/L (136-145)
[2022-05-08 04:55] LABS: #Basophils 0.1 10x3/uL (0.0-0.2); #Eosinphils 0.6 10x3/uL (0.0-0.5); #Monocytes 0.6 10x3/uL (0.0-1.1); #Neutrophils 4.3 10x3/uL (1.5-8.4); %Basophils 0.9 % (0.0-2.0); %Eosinophils 9.6 % (0.0-6.0); %Lymphocytes 12.4 % (18.0-47.0); %Monocytes 9.3 % (0.0-10.0); %Neutrophils 67.3 % (40.0-75.0); Hemoglobin 9.7 g/dL (13.5-17.5); Mean Corpuscular HGB CONC 32.7 g/dL (32.0-36.0); Mean Corpuscular Hemoglobin 28.4 pg (27.0-33.0); Mean Corpuscular Volume 87.1 fl (81.2-95.1); Mean Platelet Volume 9.6 fl (7.4-10.4); Platelet Count 317 10x3/uL (150-450); RBC Distribution Width 15.3 % (11.5-14.5); Red Blood Cell (RBC) Count 3.41 10x6/uL (4.32-5.72); White Blood Cell (WBC) Count 6.5 10x3/uL (3.5-10.5)
[2022-05-08] MEDS: FLUoxetine HCl 20 MG CAP PO SCH (09:34)
[2022-05-08] MEDS: Amiodarone 200 MG TAB PO SCH (09:34)
[2022-05-08] MEDS: Spironolactone 25 MG TAB PO SCH (09:34)
[2022-05-08] MEDS: Terazosin HCl 1 MG CAP PO SCH (09:34)
[2022-05-08] MEDS: Saccharomyces boulardii 250 MG CAP PO SCH ×2 (09:34→17:05)
[2022-05-08] MEDS: Lidocaine 5% Patch TD SCH (09:35)
[2022-05-08] MEDS: Aspirin 81 mg Enteric Coated Tablet PO SCH (09:35)
[2022-05-08] MEDS: Furosemide 20 MG TAB PO SCH ×2 (09:35→21:16)
[2022-05-08 14:16] LABS: Vancomycin, Trough 18.9 ug/mL
[2022-05-08] MEDS: Vancomycin HCl 1.25 GM in Sodium Chloride 0.9% 250 ML 250 ML IVPB SCH (15:24)
[2022-05-08] MEDS: Acetaminophen 325 MG TAB PO PRN (15:41)
[2022-05-08] MEDS: Warfarin Sodium 5 MG TAB PO SCH (17:04)
[2022-05-08] MEDS: Atorvastatin Calcium 40 MG TAB PO SCH (21:16)
[2022-05-08] MEDS: LIDOCAINE Patch Removal TOP SCH (21:18)
[2022-05-09] MEDS: Vancomycin HCl 1.25 GM in Sodium Chloride 0.9% 250 ML 250 ML IVPB SCH ×2 (03:51→15:05)
[2022-05-09 05:44] LABS: #Basophils 0.1 10x3/uL (0.0-0.2); #Eosinphils 0.4 10x3/uL (0.0-0.5); #Monocytes 0.6 10x3/uL (0.0-1.1); #Neutrophils 5.9 10x3/uL (1.5-8.4); %Basophils 0.8 % (0.0-2.0); %Eosinophils 5.7 % (0.0-6.0); %Lymphocytes 8.7 % (18.0-47.0); %Monocytes 8.1 % (0.0-10.0); %Neutrophils 76.2 % (40.0-75.0); Hemoglobin 9.7 g/dL (13.5-17.5); Mean Corpuscular HGB CONC 34.3 g/dL (32.0-36.0); Mean Corpuscular Volume 84.7 fl (81.2-95.1); Mean Platelet Volume 9.7 fl (7.4-10.4); Platelet Count 307 10x3/uL (150-450); RBC Distribution Width 15.3 % (11.5-14.5); Red Blood Cell (RBC) Count 3.34 10x6/uL (4.32-5.72); White Blood Cell (WBC) Count 7.7 10x3/uL (3.5-10.5)
[2022-05-09 05:50] LABS: Anion Gap 16 mmol/L (10-20); BUN (Urea Nitrogen) 16 mg/dL (8.4-25.7); Calc. Creatinine Clearance 123 mL/min (70-130); Carbon Dioxide 21 mmol/L (23-31); Chloride 100 mmol/L (98-107); Estimated GFR 100; Glucose 96 mg/dL (80-115); INR-International Normal Ratio 1.7; Magnesium 1.7 mg/dL (1.6-2.6); Potassium 3.9 mmol/L (3.5-5.1); Prothrombin Time 17.5 sec (9.5-12.1); Sodium 133 mmol/L (136-145)
[2022-05-09] MEDS: Loperamide HCl 1 MG/7.5 ML UDCUP PO PRN (09:27)
[2022-05-09] MEDS: Aspirin 81 mg Enteric Coated Tablet PO SCH (09:27)
[2022-05-09] MEDS: Acetaminophen 325 MG TAB PO PRN ×3 (09:27→21:12)
[2022-05-09] MEDS: Saccharomyces boulardii 250 MG CAP PO SCH ×2 (09:27→17:44)
[2022-05-09] MEDS: Amiodarone 200 MG TAB PO SCH (09:29)
[2022-05-09] MEDS: Lidocaine 5% Patch TD SCH (09:29)
[2022-05-09] MEDS: Spironolactone 25 MG TAB PO SCH (09:29)
[2022-05-09] MEDS: Terazosin HCl 1 MG CAP PO SCH (09:29)
[2022-05-09] MEDS: Metoprolol Tartrate 25 MG TAB PO SCH ×2 (09:29→21:07)
[2022-05-09] MEDS: Furosemide 20 MG TAB PO SCH ×2 (09:31→21:07)
[2022-05-09] MEDS ORDERED: Lidocaine 1% PF 5 ML VIAL ONE (11:23)
[2022-05-09] MEDS ORDERED: Sodium Bicarbonate 2.5 MEQ/5 ML VIAL ONE (11:23)
[2022-05-09] MEDS: Warfarin Sodium 5 MG TAB PO SCH (17:44)
[2022-05-09] MEDS: Atorvastatin Calcium 40 MG TAB PO SCH (21:07)
[2022-05-09] MEDS: LIDOCAINE Patch Removal TOP SCH (21:12)
[2022-05-10 00:08] VITALS: BP 104/63; TEMP 97
[2022-05-10] MEDS ORDERED: Vancomycin HCl 1.25 GM in Sodium Chloride 0.9% 250 ML 250 ML IVPB SCH (03:00)
[2022-05-12 23:07] LABS: Norovirus GI Negative (Negative); Norovirus GII Negative (Negative)
== END 2022-05-09 23:45 | DRG 854 ==
LOC: EEVIPCON 09:27 → CSHERS 09:27 → CSHICU 22:43 → CSHTELE 05-05 17:14
PROVIDERS: ADMIT Student in an Organized Health Care Education/Training Program; ATTEND Family Medicine
PROC: 3E03329 Introduction of Other Anti-infective into Peripheral Vein, Percutaneous Approach (ICD-10-PCS; 2022-05-01)
PROC: 0JB90ZZ Excision of Buttock Subcutaneous Tissue and Fascia, Open Approach (ICD-10-PCS; principal; 2022-05-02)
PROC: 02HV33Z Insertion of Infusion Device into Superior Vena Cava, Percutaneous Approach (ICD-10-PCS; 2022-05-09)
PROC: B5181ZA Fluoroscopy of Superior Vena Cava using Low Osmolar Contrast, Guidance (ICD-10-PCS; 2022-05-09)
PROC: B548ZZA Ultrasonography of Superior Vena Cava, Guidance (ICD-10-PCS; 2022-05-09)
DX: A41.02 Sepsis due to Methicillin resistant Staphylococcus aureus (principal); I50.42 Chronic combined systolic (congestive) and diastolic (congestive) heart failure; L03.317 Cellulitis of buttock; I48.21 Permanent atrial fibrillation; E87.1 Hypo-osmolality and hyponatremia; J90 Pleural effusion, not elsewhere classified; K52.1 Toxic gastroenteritis and colitis; Z20.822 Contact with and (suspected) exposure to COVID-19; E78.5 Hyperlipidemia, unspecified; E83.42 Hypomagnesemia; D63.8 Anemia in other chronic diseases classified elsewhere; K74.60 Unspecified cirrhosis of liver; B19.20 Unspecified viral hepatitis C without hepatic coma; I34.0 Nonrheumatic mitral (valve) insufficiency; E87.6 Hypokalemia; I48.0 Paroxysmal atrial fibrillation; T36.95XA Adverse effect of unspecified systemic antibiotic, initial encounter; I11.0 Hypertensive heart disease with heart failure; N43.3 Hydrocele, unspecified; Z79.01 Long term (current) use of anticoagulants; Z79.82 Long term (current) use of aspirin; Z79.899 Other long term (current) drug therapy; I25.2 Old myocardial infarction; Z90.49 Acquired absence of other specified parts of digestive tract; Z98.890 Other specified postprocedural states; Z98.49 Cataract extraction status, unspecified eye
CPT/HCPCS: 36415; 36569; 71045; 71250; 74177; 76999; 80048; 80053; 80061; 80076; 80202; 81001; 81003; 81015; 82274; 82550; 82553; 82570; 83036; 83605; 83630; 83735; 83880; 83930; 83935; 84300; 84443; 84484; 84540; 85025; 85610; 85730; 86140; 87040; 87070; 87077; 87086; 87149; 87186; 87205; 87324; 87449; 87505; 87798; 87899; 93005; 96365; 96366; 96368; 96375; 96376; 97139; C1751; J0282; J0692; J1160; J2543; J3370; J3475; J3490; J7050; Q9967; U0002; U0003; U0005